=== PATIENT | female | born 1945 | race Caucasian/White ===

== ENCOUNTER 2017-05-01 10:36 | Emergency (ER) | payer OTHER ==
[2017-05-01 10:50] VITALS: PULSE 74
--- NOTE | 2017-05-01 11:10 | EDPHY ---
H & P Time Seen by Provider: 05/01/17 10:54 HPI/ROS: CHIEF COMPLAINT: Left flank pain after fall HISTORY OF PRESENT ILLNESS: 72-year-old female presents with left flank pain. 4 days ago, she was reaching up for something in the kitchen, lost her balance and fell backwards, directly onto the back of a chair. Her left flank struck the top of the seat back and then she slid to the ground. Immediate onset of left sided back pain. The pain increases with movement and alleviated by remaining still. She has been taking Aleve for pain relief, but not this morning. Her daughter arrived to pick her up for breakfast this morning, and found that she was having substantial pain, so brought her to the emergency department. No pain with breathing or coughing. No abdominal pain. She did not hit her head; no headache or neck pain. REVIEW OF SYSTEMS: Constitutional: No weakness Eyes: No visual changes ENT: No dental trauma Neck:No pain or injury Respiratory: No shortness of breath Cardiac: No chest pain Gastrointestinal: No abdominal pain, no vomiting Genitourinary: No hematuria Musculoskeletal: No joint pain Skin: No lacerations Neurological: No headache, no dizziness Past Medical/Surgical History: Parkinson's disease Social History: Lives alone in own apartment Smoking Status: Never smoked Physical Exam: General Appearance: Alert, pleasant Head: Atraumatic Eyes: No conjunctival erythema, PERRLA, EOMI ENT, Mouth: No hemotympanum, no oral trauma, no bony tenderness Neck: Nontender, range of motion without pain Respiratory: left sided chest wall tenderness and ecchymosis posteriorly, lungs clear bilaterally Cardiovascular: Regular rate and rhythm Abdomen: Abdomen is soft and nontender Skin: No lacerations, no abrasions Back: No midline T/L/S tenderness to palpation or percussion Extremities: Pelvis is stable and nontender; no extremity tenderness or deformity, range of motion without pain Neurological: A&Ox3, normal motor function, normal sensory exam, cranial nerves intact Psychiatric: Mood and affect normal Constitutional: Initial Vital Signs Temperature (C) 36.5 C 05/01/17 10:44 Heart Rate 74 05/01/17 10:44 Respiratory Rate 17 05/01/17 10:44 Blood Pressure 137/97 H 05/01/17 10:44 O2 Sat (%) 96 05/01/17 10:44 O2 Delivery Mode Room Air Allergies/Adverse Reactions: Penicillins Allergy (Severe, Verified 01/03/13 19:46) Home Medications: Medication Instructions Recorded Aricept 5 MG (*) 05/01/17 Oxybutynin 05/01/17 Sinemet 25/100 MG (*) 05/01/17 Medical Decision Making - Diagnostics Imaging Results: Imaging Impressions Ribs w/Chest X-Ray 05/01/17 11:06 Impression: Nondisplaced to minimally displaced subacute left 8th and 9th and probable acute left 11th rib fractures. X-ray independently reviewed by me reveals a lower left rib fracture, no pneumothorax. ED Course/Re-evaluation: This patient presents with a rib fracture after a mechanical fall 4 days ago. She is not hypoxic and Aleve seems to adequately control her pain. She would greatly like to go home and I feel that this is a safe plan for her. An incentive spirometer was given. Urinalysis reveals a contaminated specimen and she has no urinary symptoms. The urine culture was sent to rule out UTI. Differential Diagnosis: Differential diagnosis includes though it is not limited to open fracture, intracranial hemorrhage, pneumothorax, hemothorax, intra-abdominal hemorrhage. - Data Points Laboratory Results: 05/01/17 11:11 Urine Color YELLOW Urine Appearance CLEAR Urine pH 6.0 (5.0-7.5) Ur Specific Arnett <= 1.005 (1.002-1.030) Urine Protein NEGATIVE (NEGATIVE) Urine Ketones NEGATIVE (NEGATIVE) Urine Blood NEGATIVE (NEGATIVE) Urine Nitrate NEGATIVE (NEGATIVE) Urine Bilirubin NEGATIVE (NEGATIVE) Urine Urobilinogen 0.2 EU EU (0.2-1.0) Ur Leukocyte Esterase 1+ H (NEGATIVE) Urine RBC 0-1 /hpf /hpf (0-3) Urine WBC 10-15 /hpf H /hpf (0-3) Ur Epithelial Cells 2+ /lpf H /lpf (NONE-1+) Amorphous Sediment 1+ /hpf /hpf (NONE-1+) Urine Mucus TRACE /lpf /lpf (NONE-1+) Urine Glucose NEGATIVE (NEGATIVE) Medications Given: Discontinued Medications Ibuprofen (Motrin) 600 mg PO EDNOW ONE Stop: 05/01/17 12:09 Last Admin: 05/01/17 12:13 Dose: 600 mg Lidocaine (Lidoderm 5%) 1 ea TD EDNOW ONE Stop: 05/01/17 12:09 Last Admin: 05/01/17 12:14 Dose: 1 ea Departure - Departure Disposition: Home, Routine, Self-Care Clinical Impression: Left rib fracture Qualifiers: Encounter type: initial encounter Rib fracture type: single rib Fracture type: closed Qualified Code(s): S22.32XA - Fracture of one rib, left side, initial encounter for closed fracture Condition: Good Instructions: Rib Fracture (ED) Additional Instructions: Take Aleve 1 tablet every 12 hours as needed for pain. You can also take Tylenol 650 mg every 4 hours as needed for pain. Use a lidocaine patch over the painful area. Follow the packaging instructions. Use the incentive spirometer every 1-2 hours while awake. Return for worsening pain, shortness of breath, cough, fever, any concerns. Referrals: YOLANDA TEIXEIRA [Primary Care Provider] - 3-4 days, if not improved
[2017-05-01 11:22] LABS: COLOR YELLOW; LEUKOCYTE ESTERASE,URINE 1+ (NEGATIVE); NITRITE,URINE NEGATIVE (NEGATIVE)
[2017-05-01] MEDS ORDERED: LIDOCAINE 5% 1 EA PATCH TD ONE (12:08)
[2017-05-01] MEDS ORDERED: IBUPROFEN 600 MG TAB PO ONE (12:08)
[2017-05-01 12:41] VITALS: BP 148/94; RESP 18; TEMP 98.2; O2SAT 97
[2017-05-01 12:59] LABS: AMORPHOUS 1+ /hpf (NONE-1+); MUCUS TRACE /lpf (NONE-1+); RBC,URINE 0-1 /hpf (0-3)
[2017-05-01] MEDS ORDERED: PATCH REMOVAL 1 EA PATCH TD SCH (21:00)
== END 2017-05-01 12:38 | disposition home or self-care (01) ==
LOC: CED 10:36
DX: S22.32XA Fracture of one rib, left side, initial encounter for closed fracture (principal); W01.190A Fall on same level from slipping, tripping and stumbling with subsequent striking against furniture, initial encounter; Y92.000 Kitchen of unspecified non-institutional (private) residence as the place of occurrence of the external cause
CPT/HCPCS: 71101-PO; 81003-PO; 81015-PO

== ENCOUNTER 2018-01-30 09:05 | Inpatient (IN) | payer OTHER ==
[2018-01-30] MEDS ORDERED: fentaNYL 100 MCG/2 ML INJ IVP ONE ×3 (09:24→10:10)
--- NOTE | 2018-01-30 10:12 | EDPHY ---
H & P [facility] - Personal History Current Tetanus/Diphtheria Vaccine: Yes Current Tetanus Diphtheria and Acellular Pertussis (TDAP): Yes - Medical/Surgical History Hx Asthma: No Hx Chronic Respiratory Disease: No Hx Diabetes: No Hx Cardiac Disease: No Hx Renal Disease: No Hx Cirrhosis: No Hx Alcoholism: No Hx HIV/AIDS: No Hx Splenectomy or Spleen Trauma: No Other PMH: hysterectomy. parkinsonism - Social History Smoking Status: Never smoked Time Seen by Provider: 01/30/18 09:55 HPI/ROS: CHIEF COMPLAINT: Left shoulder pain post mechanical fall HISTORY OF PRESENT ILLNESS: 72-year-old female history of Parkinson's disease, ambulates with a walker held in her bilateral hands, lives at an independent prison facility, arrives via ambulance complaining of acute left shoulder pain after she was walking with her walker, her walker caught on something and she fell onto her outstretched left arm. She is complaining of reproducible left upper extremity pain and shoulder deformity. Denies: Head injury, midline C-spine pain, alcohol or drug use, peripheral musculoskeletal complaints beyond her left shoulder complaint, chest pain or trauma, dyspnea. REVIEW OF SYSTEMS: A ten point review of systems was performed and is negative with the exception of the items mentioned in the HPI PAST MEDICAL/SURGICAL HISTORY: no anticoagulant use, Parkinson's disease SOCIAL HISTORY: denies alcohol use at time of incident PHYSICAL EXAM 1) GENERAL: Well-developed, well-nourished, alert and oriented. Appears to be in no acute distress. Answering questions appropriately. 2) HEAD: Normocephalic, atraumatic 3) HEENT: Pupils equal, round, reactive to light bilaterally. Negative Horners. Nasopharynx, oropharynx, clear. No deformity or angulation of nose. No septal hematoma. No rhinorrhea. No oral trauma. Ears bilaterally with normal tympanic membranes. No hemotympanum. No fluid or blood in the external auditory canal. No raccoon eyes. No Coker sign. Teeth are normally aligned with no gross malocclusion, TMJ bilaterally nontender, facial bones nontender including the zygomatic arch, maxilla mandible. 4) NECK: No cervical collar is on. Posterior cervical spine is nontender, no stepoff, no effusion. Full range of motion which does not elicit any midline cervical spine pain, no posterior midline tenderness, no step-off. Cervical collar is on.Cervical collar is removed while holding inline traction and patient is unable to completely differentiate between true midline pain versus just lateral of midline pain.Cervical collar is replaced at that point.and patient has no complaints of midline cervical pain, no effusion noted, trachea midline, no JVD. 5) LUNGS: Clear to auscultation bilaterally, no wheezes, no rhonchi, no retractions. No obvious signs of trauma. No chest wall pain. No flaring, no grunting. Moving symmetrically. No crepitus. 6) HEART: [Regular rate and rhythm, 7) ABDOMEN: No guarding, no rebound, no focal tenderness, no peritoneal signs, no signs of trauma, no ecchymosis 8) MUSCULOSKELETAL: Left upper extremity: Lateral step-off anterior fullness consistent with dislocation. Intact skin. No tenting. Bilateral deltoid sensation equal. Distal radial ulnar median nerve function intact. Soft compartments Palpation of the forearm elicits pain, unclear of pain directly from the forearm or referred pain from the shoulder. Otherwise, Moving all extremities, no focal areas of tenderness, no obvious trauma. 9) BACK: No midline vertebral tenderness, no fluctuance, no step-off, no obvious trauma, no visual or palpable abnormality. 10) SKIN: No laceration. No abrasion DIFFERENTIAL DIAGNOSIS: In no particular order including but not limited to fracture, dislocation, compartment syndrome (Lay,Rj Lydia) Constitutional: Initial Vital Signs Temperature (C) 36.5 C 01/30/18 09:08 Heart Rate 69 01/30/18 09:08 Respiratory Rate 18 01/30/18 09:08 Blood Pressure 147/100 H 01/30/18 09:08 O2 Sat (%) 94 01/30/18 09:08 O2 Delivery Mode Room Air Allergies/Adverse Reactions: Penicillins Allergy (Severe, Verified 01/03/13 19:46) Home Medications: Medication Instructions Recorded Carbidopa/Levodopa 25/100Mg 1 tab PO TID@07,15,05/01/17 [Sinemet 25/100 MG (*)] Carbidopa/Levodopa 25/100Mg 2 tab PO DAILY@01/30/18 [Sinemet 25/100 MG (*)] Darifenacin Hydrobromide [Enablex] 7.5 mg PO DAILY 01/30/18 Melatonin [Melatonin 3 MG (*)] 3 - 6 mg PO HS 01/30/18 Medical Decision Making - Diagnostics Imaging Results: Imaging Impressions Forearm X-Ray 01/30/18 09:17 Impression: Negative. No acute fracture. Shoulder X-Ray 01/30/18 09:17 Impression: 1. Anterior dislocation left humeral head at the glenoid fossa. 2. Small chip fracture suspected adjacent to the glenoid portion of the scapula. Humerus X-Ray 01/30/18 09:18 Impression: 1. Anterior dislocation left humeral head at the glenoid fossa. 2. Small chip fracture suspected adjacent to the glenoid portion of the scapula. Shoulder X-Ray 01/30/18 10:30 Impression: 1. No fracture or dislocation. 2. 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 Procedures: Procedure: Dislocation reduction. . The dislocation of the left shoulder was reduced using traction and counter traction technique without complications. Post reduction the patient's neurovascular exam is normal. Post reduction x-ray demonstrates reduction of the joint to the anatomic position. The procedure was performed by myself. (Rj Chun) ED Course/Re-evaluation: 10:17 a.m.: Re-evaluation with serial exams. She does have clinical and radiographic findings consistent with anterior shoulder dislocation with no evidence of definitive fracture at this time. Plan will be reduction of the shoulder. Plan will also be hospital admission to the hospitalist service as she will be placed into a sling and she will be unable to ambulate with her walker and has a baseline of gait instability. I saw this patient independently based on established practice protocols. Care of patient under supervision of secondary supervising physician Dr Al Andrade with whom I discussed case. 10:54 a.m.: Post reduction x-ray shows normal anatomic alignment. She is in a sling. I do not think that discharge home is appropriate for this patient as she is unable to ambulate at this time as am concerned she may sustain secondary injury. Plan will be admission to hospitalist service with orthopedic consultation. Case management has been made aware 11:01 a.m.: Phone consultation with hospitalist, admit to Dr. Gomez, case management coordinating with respite care (Rj Chun) I did not see this patient while she was in the emergency department. However her care was discussed with the PA while the patient was in the department. I agree with treatment plan and management (Al Andrade) - Data Points Laboratory Results: Laboratory Results 01/30/18 09:07 01/30/18 09:07 Sodium 138 mEq/L mEq/L (135-145) Potassium 4.2 mEq/L mEq/L (3.3-5.0) Chloride 108 mEq/L mEq/L (97-110) Carbon Dioxide 22 mEq/l mEq/l (22-31) Anion Gap 8 mEq/L mEq/L (8-16) BUN 14 mg/dL mg/dL (7-23) Creatinine 0.9 mg/dL mg/dL (0.6-1.0) Estimated GFR > 60 Glucose 110 mg/dL H mg/dL (70-100) Calcium 9.7 mg/dL mg/dL (8.5-10.4) Medications Given: Discontinued Medications Fentanyl (Sublimaze) 50 mcg IVP EDNOW ONE Stop: 01/30/18 09:25 Last Admin: 01/30/18 09:26 Dose: 50 mcg Fentanyl (Sublimaze) 50 mcg IVP EDNOW ONE Stop: 01/30/18 10:08 Last Admin: 01/30/18 10:50 Dose: Not Given Fentanyl (Sublimaze) 75 mcg IVP EDNOW ONE Stop: 01/30/18 10:11 Last Admin: 01/30/18 10:15 Dose: 75 mcg Departure - Departure Disposition: [facility] Acute Clinical Impression: History of Parkinson's disease Shoulder dislocation Qualifiers: Encounter type: initial encounter Laterality: left Qualified Code(s): S43.005A - Unspecified dislocation of left shoulder joint, initial encounter Condition: Fair
[2018-01-30 11:11] LABS: PLATELET COUNT 231 10^3/uL (150-400)
[2018-01-30] MEDS ORDERED: ONDANSETRON 4 MG/2 ML VIAL IVP PRN (11:41)
[2018-01-30] MEDS ORDERED: ONDANSETRON DISINTEGRATING 4 MG TAB PO PRN (11:41)
[2018-01-30] MEDS ORDERED: ACETAMINOPHEN 325 MG TAB PO PRN (11:41)
--- NOTE | 2018-01-30 12:16 | ASMTCMCOM ---
CM Note CM Note Notes: Patient presents to the ER from her apartment at [facility] ([facility] in [place] after falling this morning. See ER report for details. Patient is active with [facility] and aI have spoken with her SW Miri about plans for patient admission and potential SNF/respite care upon discharge. I have also spoken with patient's daughter Asiya Asiya explains that patient has recently started with [facility] and they are doing everything they can to keep patient in her home. Asiya believes that patient does pretty well but is concerned that she is "stubborn" and does not always use her walker, "which is how she fell today". Miri states that she is looking into options for patient to enter a "respite" bed upon D/C to allow for some therapy while patient is recovering from her fall. She informs this CM that [facility] would be the preferred location based on patient's residence and I have LM with Norma Woodard . CM can reach FRANKI Chery at [facility] today until 4:30 , or call the main number after hours and the weekend @ I have met with patient and discussed plan for admission and potential SNF/respite stay after and she is "open" to this, "if needed". CM to follow with discharge planning. Date Signed: 01/30/2018 12:15 PM Electronically Signed By:Twila Abraham RN
[2018-01-30] MEDS: oxyCODONE IR 5 MG TAB PO PRN ×2 (14:03→18:07)
--- NOTE | 2018-01-30 14:30 | GHP ---
[f rep st] HISTORY AND PHYSICAL DATE OF ADMISSION: 01/30/2018 CHIEF COMPLAINT: Left shoulder pain. HISTORY OF PRESENT ILLNESS: The patient is a 72-year-old female with a history of Parkinson disease. She ambulates at baseline with a walker and lives independently in a residential facility. Today , she states that she was using her walker when she caught on something and fell, outstretched her le ft arm and fell on it. She complains of left upper extremity pain and shoulder discomfort. She stat es that she was feeling in her normal health until this fall. She denies any loss of consciousness. She denies any shortness of breath, chest pain, or dyspnea. She denies any other fevers, night swea ts, chills, other complaints. Her only complaint is her left shoulder pain. REVIEW OF SYSTEMS: A comprehensive 10-point review of systems is negative, other than noted in the H PI. PAST MEDICAL HISTORY: Parkinson disease. PAST SURGICAL HISTORY: Hysterectomy. SOCIAL HISTORY: The patient lives independently. She denies any alcohol or tobacco use. ALLERGIES: Penicillin. PHYSICAL EXAM: GENERAL: The patient is alert, oriented, no acute distress. Mild discomfort. VITAL SIGNS: Afebrile at 36.5, pulse is 94, respiratory rate is 18, blood pressure is 156/101. She is sa turating 92% on room air. HEENT: Normocephalic, atraumatic. Mucosal membranes are moist. Pupils e qual, round, reactive to light. RESPIRATORY: Lungs are clear to auscultation bilaterally. No rhonc hi or wheezes noted. CARDIOVASCULAR: Regular rate and rhythm. No gallop or murmur appreciated. GA STROINTESTINAL/ABDOMEN: Bowel sounds are positive. Soft and nontender. There is no guarding or rig idity noted. EXTREMITIES: Within normal limits other than the pre-mentioned left upper extremity wi th increased pain and limited range of motion. Other extremities are intact without clubbing or cyan osis appreciated. SKIN: Without rashes or lesions. No abrasions identified. NEUROLOGICAL: The pa tient is focally intact. HOME MEDICATIONS: Sinemet, melatonin, and Enablex. RADIOLOGICAL STUDIES: 1. Forearm x-ray is negative. 2. Shoulder x-ray shows anterior dislocation of the left humeral head with a possible small chip fra cture. 3. Shoulder x-ray: Rotator cuff impingement. PROCEDURE: Dislocation reduction of the left shoulder. LABORATORY EVALUATION: Metabolic panel and CBC are essentially benign. ASSESSMENT AND PLAN: A 72-year-old female, suffering mechanical fall, admitted for: 1. Left shoulder dislocation during this hospitalization. Her shoulder has been relocated. She ramirez s have rotator cuff impingement with possible small chip fracture of her humerus. She is in a sling and will require outpatient followup with Orthopedics, but no identifiable needs at this time. 2. Pain. I have ordered a small dose of oxycodone IR for the patient as she is elderly. We will co ntinue this as well as Tylenol for pain management. 3. Hypertension. This is in the setting of acute stress and anxiety as well as pain. We will monit or this closely. She states she does not have a history of hypertension, and we will not start her o n any antihypertensive medications at this time. 4. History of Parkinson disease. We will continue the patient's previously prescribed Sinemet as or dered. 5. Weakness. Physical therapy, as well as occupational therapy will be initiated during this hospit al's admission. 6. Disposition. The patient will be admitted to inpatient status as she requires significant care w ith her activities of daily living and pain management. The patient may require prison faci lity at the time of disposition. I reviewed this with Case Management. I have reviewed the patient' s care with Sameer Chun of the emergency room. 7. Deep venous thrombosis prophylaxis will include Lovenox. Further action will be taken as needed during the patient's hospitalization. /[id number]/MODL
[2018-01-30] MEDS: CARBIDOPA/LEVODOPA 25 MG/100 MG TAB PO SCH ×2 (16:23→18:07)
[2018-01-30] MEDS ORDERED: MELATONIN 3 MG TAB PO SCH (21:00)
[2018-01-31] MEDS: oxyCODONE IR 5 MG TAB PO PRN (01:29)
[2018-01-31] MEDS: CARBIDOPA/LEVODOPA 25 MG/100 MG TAB PO SCH ×2 (06:42→14:43)
[2018-01-31] MEDS ORDERED: ENOXAPARIN 30 MG/0.3 ML SYR SC SCH (09:00)
[2018-01-31] MEDS ORDERED: DARIFENACIN HYDROBROMIDE 7.5 MG PO SCH (09:00)
--- NOTE | 2018-01-31 09:52 | ASMTCMCOM ---
CM Note CM Note Notes: Spoke with Norma Woodard about plan for respite at [facility] on DC. Per Norma, [facility] will pay for a nursing respite stay. If pt needs therapies. she will get them at [facility]'s day program. Referral faxed to . NADJA to follow. Date Signed: 01/31/2018 09:52 AM Electronically Signed By:Valentina Madrid LCSW
--- NOTE | 2018-01-31 10:48 | PDIAF ---
- Diagnosis Diagnosis: shoulder disloacation Code Status: Full Code - Medication Management Discharge Medications: Medications to Continue on Transfer Carbidopa/Levodopa 25/100Mg [Sinemet 25/100 MG (*)] 1 tab PO TID@,, [Last Taken 01/30/18 07:00] Carbidopa/Levodopa 25/100Mg [Sinemet 25/100 MG (*)] 2 tab PO DAILY@11 01/30/18 [ Last Taken 01/29/18] Darifenacin Hydrobromide [Enablex] 7.5 mg PO DAILY 01/30/18 [Last Taken 01/30/18 ] Melatonin [Melatonin 3 MG (*)] 3 - 6 mg PO HS 01/30/18 [Last Taken 01/29/18] oxyCODONE IR [Oxycodone Ir (*)] 2.5 - 5 mg PO Q4HRS PRN tab 01/31/18 [Last Taken Unknown] Discharge Medications: Refer to the Discharge Home Medication list for PRN reason. - Orders Services needed: Physical Therapy, Occupational Therapy - Follow Up Care Current Providers and Referrals: Patient,NotPresent [Unknown] - As per Instructions
--- NOTE | 2018-01-31 10:55 | PDIAF ---
- Diagnosis Diagnosis: shoulder disloacation Code Status: Full Code - Medication Management Discharge Medications: Medications to Continue on Transfer Carbidopa/Levodopa 25/100Mg [Sinemet 25/100 MG (*)] 1 tab PO TID@,, [Last Taken 01/30/18 07:00] Carbidopa/Levodopa 25/100Mg [Sinemet 25/100 MG (*)] 2 tab PO DAILY@11 01/30/18 [ Last Taken 01/29/18] Darifenacin Hydrobromide [Enablex] 7.5 mg PO DAILY 01/30/18 [Last Taken 01/30/18 ] Melatonin [Melatonin 3 MG (*)] 3 - 6 mg PO HS 01/30/18 [Last Taken 01/29/18] Discharge Medications: Refer to the Discharge Home Medication list for PRN reason. - Orders Services needed: Physical Therapy, Occupational Therapy Additional Instructions: Left shoulder in sling for 3 days then start PT with gentle range of motion and advance mobility as tolerated - Follow Up Care Current Providers and Referrals: Patient,NotPresent [Unknown] - As per Instructions
[2018-01-31] MEDS ORDERED: CARBIDOPA/LEVODOPA 25 MG/100 MG TAB PO SCH (11:00)
--- NOTE | 2018-01-31 11:18 | ASMTDCNOTE ---
Case Management Discharge Discharge Order Complete? Answers: Yes Transportation Arranged Answers: Other Notes: [facility] will Pick (Date 01/31/2018 03:00 AM & Time) Faxed Final Orders Answers: Yes Family Notified Answers: Yes Date Signed: 01/31/2018 11:18 AM Electronically Signed By:Valentina Madrid LCSW
--- NOTE | 2018-01-31 11:28 | ASMTLACE ---
LACE Length of stay for Answers: 1 day current admission Acuity / Level of Answers: Yes Care: Did the patient have an inpatient admission? Comorbidities - select Answers: Cerebrovascular disease all that apply (CVA, TIA, aneurysms, vasc ular dementia) # of Emergency department Answers: 1-2 visits in the last 6 months Score: 6 Date Signed: 01/31/2018 11:27 AM Electronically Signed By:Valentina Madrid LCSW
--- NOTE | 2018-01-31 12:29 | GDS ---
[f rep st] DISCHARGE SUMMARY DISCHARGE DIAGNOSES: 1. Status post fall with left shoulder dislocation. 2. Parkinson's. 3. Lewy body dementia. HISTORY: This is a 72-year-old female with a history of Parkinson's and dementia, who fell on an out stretched hand and developed a shoulder dislocation. HOSPITAL COURSE: The patient was admitted overnight. She is doing well with pain control. Patient was seen in the emergency department and the shoulder was reduced. Repeat shoulder x-ray shows no fr acture or dislocation. She does remain in a sling today. She did well overnight, and she is going t o be discharged to [facility] for a couple week respite from her day program [facility]. DISPOSITION: [facility]. DISCHARGE MEDICATIONS: She is to continue her home medicines. FOLLOWUP INSTRUCTIONS: She is instructed to stay in a sling for 3 or 4 days, and then to start gentl e physical therapy with passive range of motion and advancing as tolerated afterwards. She can also follow up with Orthopedic surgery within a week or 2. Greater than 30 minutes was spent in discharge. /[id number]/MODL
[2018-01-31 13:58] VITALS: BP 96/64
[2018-02-01] MEDS ORDERED: ENOXAPARIN 40 MG/0.4 ML SYR SC SCH (09:00)
--- NOTE | 2018-02-01 11:31 | ASDISCHSUM ---
Discharge Information Plan Status:SNF Medically Cleared to Leave: Discharge Date:01/31/2018 03:12 PM D/C Disposition:Care Home Facility ADT D/C Disposition:Care Home Facility Projected Discharge Date:02/01/2018 11:00 AM Transportation at D/C: Discharge Delay Reason: Follow-Up Date:02/01/2018 11:00 AM Discharge Slot: Final Diagnosis: Placement Information Referral Type:*Penitentiary/SNF Referral ID:[id number] Provider Name:[facility] Address 1:[address] Address 2: City:[place] Selection Factors: State:[place] Patient Contact Information Contact Name:CHINMAY Relationship:Daughter Address:[address] [place] [address] City:[place] Alternate Phone: State/Zip Code:[place] [address] Email: Financial Information Financial Class:HMO and PPO Plans Primary Plan Desc:[facility] Primary Plan Number:[id number] Secondary Plan Desc: Secondary Plan Number: Assessment Information LACE LACE Length of stay for Answers: 1 day current admission Acuity / Level of Answers: Yes Care: Did the patient have an inpatient admission? Comorbidities - select Answers: Cerebrovascular disease all that apply (CVA, TIA, aneurysms, vasc ular dementia) # of Emergency department Answers: 1-2 visits in the last 6 months Score: 6 Date Signed: 01/31/2018 11:27 AM Electronically Signed By:Valentina Madrid LCSW [facility] CM Progress Note CM Note CM Note Notes: Patient presents to the ER from her apartment at [facility] ([facility] in [place] after falling this morning. See ER report for details. Patient is active with [facility] and aI have spoken with her SWMiri about plans for patient admission and potential SNF/respite care upon discharge. I have also spoken with patient's daughter Asiya Asiya explains that patient has recently started with [facility] and they are doing everything they can to keep patient in her home. Asiya believes that patient does pretty well but is concerned that she is "stubborn" and does not always use her walker, "which is how she fell today". Miri states that she is looking into options for patient to enter a "respite" bed upon D/C to allow for some therapy while patient is recovering from her fall. She informs this CM that [facility] would be the preferred location based on patient's residence and I have LM with Norma Woodard . CM can reach FRANKI Chery at [facility] today until 4:30 , or call the main number after hours and the weekend @ I have met with patient and discussed plan for admission and potential SNF/respite stay after and she is "open" to this, "if needed". CM to follow with discharge planning. Date Signed: 01/30/2018 12:15 PM Electronically Signed By:Twila Abraham RN [facility] CM Progress Note CM Note CM Note Notes: Spoke with Norma Woodard about plan for respite at [facility] on [place]. Per Norma, [facility] will pay for a nursing respite stay. If pt needs therapies. she will get them at [facility]'s day program. Referral faxed to Malik [facility] to follow. Date Signed: 01/31/2018 09:52 AM Electronically Signed By:Valentina Madrid LCSW Case Management Discharge Plan Note Case Management Discharge Discharge Order Complete? Answers: Yes Transportation Arranged Answers: Other Notes: [facility] will Pick (Date 01/31/2018 03:00 AM & Time) Faxed Final Orders Answers: Yes Family Notified Answers: Yes Date Signed: 01/31/2018 11:18 AM Electronically Signed By:Valentina Madrid LCSW Intervention Information Intervention Type:*Incorrect Registration Date of Service:01/30/2018 01:52 PM Patient Type:Observation Staff Member:RANDALL Lanier Courtney Hours: Discipline: Severity: Comment:
== END 2018-01-31 15:12 | DRG 563 ==
LOC: EDUNIT# → OBSVTOIN 11:42 → F3N 12:43
PROVIDERS: ADMIT Internal Medicine; ATTEND Internal Medicine
DX: S43.012A Anterior subluxation of left humerus, initial encounter (principal); G31.83 Neurocognitive disorder with Lewy bodies; F02.80 Dementia in other diseases classified elsewhere, unspecified severity, without behavioral disturbance, psychotic disturbance, mood disturbance, and anxiety; M19.012 Primary osteoarthritis, left shoulder; M75.42 Impingement syndrome of left shoulder; W01.0XXA Fall on same level from slipping, tripping and stumbling without subsequent striking against object, initial encounter; Y93.01 Activity, walking, marching and hiking; Y92.198 Other place in other specified residential institution as the place of occurrence of the external cause; R03.0 Elevated blood-pressure reading, without diagnosis of hypertension; R53.1 Weakness; Z88.0 Allergy status to penicillin
CPT/HCPCS: 96374; 97161-GP; 97165-GO; G8978-GP-CK; G8979-GP-CI; G8987-GO-CK; G8988-GO-CJ; J1650; J3010

== ENCOUNTER 2018-11-10 16:27 | Emergency (ER) | payer OTHER ==
--- NOTE | 2018-11-10 17:02 | EDPHY ---
H & P Stated Complaint: PC sent for labs, dementia, confusion, ams from baseline Time Seen by Provider: 11/10/18 17:02 HPI/ROS: HPI CHIEF COMPLAINT: Confusion. HISTORY OF PRESENT ILLNESS: Patient is a 73-year-old female she arrives to the emergency room by private vehicle with her daughter from her day program which the day staff noticed at the day program that she was having increasing confusion today. She has dementia at baseline, however the staff there thought that she was more confused than normal. She arrives to the emergency room in no acute distress, denies any complaints. She did have a recent fall earlier in the week and has some bruising to her right side her face. The bruising his old. Daughter at bedside reports to me that she is close to her baseline appears tired however brought her to the emergency room is staff at her day facility thought that she was more confused. No focal weakness. Past Medical History: Significant medical history for hypertension, Parkinson' s disease, dementia Past Surgical History: No recent surgical history Social History: Lives locally, in assisted living facility. Family History: Noncontributory ROS REVIEW OF SYSTEMS: 10 Systems were reviewed and negative with the exception of the elements mentioned in the history of present illness. Exam Constitutional elderly, frail, nontoxic triage nursing summary reviewed, vital signs reviewed, awake/alert. Eyes normal conjunctivae and sclera, EOMI, PERRLA. HENT normal inspection, atraumatic, moist mucus membranes, no epistaxis, neck supple/ no meningismus, no raccoon eyes. Respiratory clear to auscultation bilaterally, normal breath sounds, no respiratory distress, no wheezing. Cardiovascular rate normal, regular rhythm, no murmur, no edema, distal pulses normal. Gastrointestinal soft, non-tender, no rebound, no guarding, normal bowel sounds, no distension, no pulsatile mass. Genitourinary no CVA tenderness. Musculoskeletal no midline vertebral tenderness, full range of motion, no calf swelling, no tenderness of extremities, no meningismus, good pulses, neurovascularly intact. Skin face mild bruising to the right side of face, yellow/brown ecchymosis, otherwise atraumatic pink, warm, & dry, no rash, skin atraumatic. Neurologic awake, alert and oriented x 3, AAOx3, moves all 4 extremities equally, motor intact, sensory intact, CN II-XII intact, normal cerebellar, normal vision, normal speech. Psychiatric normal mood/affect. Heme/Lymph/Immune no lymphadenopathy. Differential Diagnosis: Includes but is not limited to in a particular order underlying dementia, delirium, infection, UTI, pneumonia, electrolyte disturbance, dehydration Medical Decision Making: Plan for this patient IV establishment IV fluid bolus , check basic electrolytes, troponin, EKG, CT scan head without contrast given patient fell. Re-evaluation: Urinalysis reviewed shows urinary tract infection. Culture will be sent. [address] scan head without contrast negative for acute traumatic injury called to me by Dr. Vera. EKG interpretation by me on record in [employer] system. Impression time of EKG 1756, sinus rhythm rate of 65, no signs of acute ischemia. Troponin 0.00 1929 patient is requesting discharge home. Patient feels much better. She received IV fluids and IV Rocephin. Urine cultures been sent. Plan for treatment for UTI. Daughter updated at bedside at 7:29 p.m. She would like her mom to go home. We discussed return precautions return emergency room if worsening fever, confusion , vomiting, not doing well. Source: Patient - Personal History Current Tetanus/Diphtheria Vaccine: Yes Current Tetanus Diphtheria and Acellular Pertussis (TDAP): Yes - Medical/Surgical History Hx Asthma: No Hx Chronic Respiratory Disease: No Hx Diabetes: No Hx Cardiac Disease: No Hx Renal Disease: No Hx Cirrhosis: No Hx Alcoholism: No Hx HIV/AIDS: No Hx Splenectomy or Spleen Trauma: No Other PMH: hysterectomy. parkinsonism, Lewey Body dementia - Social History Smoking Status: Never smoked Constitutional: Initial Vital Signs Temperature (C) 36.6 C 11/10/18 16:29 Heart Rate 76 11/10/18 16:29 Respiratory Rate 16 11/10/18 16:29 Blood Pressure 140/83 H 11/10/18 16:29 O2 Sat (%) 97 11/10/18 16:29 O2 Delivery Mode Room Air Allergies/Adverse Reactions: Penicillins Allergy (Severe, Verified 02/13/18 11:10) Home Medications: Medication Instructions Recorded Darifenacin Hydrobromide [Enablex] 7.5 mg PO DAILY 01/30/18 Acetaminophen [Tylenol 325mg (*)] 325 - 650 mg PO Q4H PRN 02/13/18 Carbidopa/Levodopa 25/100Mg 1 tab PO BID@08,16 02/13/18 [Sinemet 25/100 MG (*)] Carbidopa/Levodopa 2 each PO DAILY@12 02/13/18 [Carbidopa-Levodopa 25-100 Tab] Ibuprofen [Motrin (*)] 200 mg PO Q4H PRN 02/13/18 Ibuprofen [Motrin (*)] 400 mg PO Q6H PRN 02/13/18 LORazepam [Ativan (*)] 0.5 mg PO HS PRN 02/13/18 Melatonin 5 mg SL HS 02/13/18 Sertraline HCl [Zoloft 25mg (*)] 25 mg PO HS 02/13/18 Cephalexin [Keflex] 500 mg PO Q6H #28 cap 11/10/18 Medical Decision Making - Diagnostics Imaging Results: Imaging Impressions Head CT 11/10/18 17:12 Impression: 1. Elderly brain with atrophy and probable white matter small vessel disease. 2. Negative for intracranial hemorrhage. 3. Partial opacification of the sphenoid sinuses may be related to blood from a facial trauma. 4. See above report for additional findings. Results called and discussed with Cirilo Cespedes MD on 11/10/2018 at 18:00. - Data Points Laboratory Results: Laboratory Results 11/10/18 16:50 11/10/18 16:50 11/10/18 11/10/18 11/10/18 17:28 16:50 16:50 WBC RBC Hgb Hct MCV MCH MCHC RDW Plt Count MPV Neut % (Auto) Lymph % (Auto) Bibb % (Auto) Eos % (Auto) Baso % (Auto) Nucleat RBC Rel Count Absolute Neuts (auto) Absolute Lymphs (auto) Absolute Monos (auto) Absolute Eos (auto) Absolute Basos (auto) Absolute Nucleated RBC Immature Gran % Immature Gran # PT 12.5 SEC SEC (12.0-15.0) INR 0.97 (0.83-1.16) APTT 28.4 SEC SEC (23.0-38.0) Sodium Potassium Chloride Carbon Dioxide Anion Gap BUN Creatinine Estimated GFR Glucose Calcium Total Bilirubin 0.4 mg/dL mg/dL (0.1-1.4) Conjugated Bilirubin 0.2 mg/dL mg/dL (0.0-0.5) Unconjugated Bilirubin 0.2 mg/dL mg/dL (0.0-1.1) AST 19 IU/L IU/L (14-46) ALT 21 IU/L IU/L (9-52) Alkaline Phosphatase 88 IU/L IU/L (38-126) POC Troponin I 0.00 ng/mL ng/mL (0.00-0.08) Total Protein 7.0 g/dL g/dL (6.3-8.2) Albumin 4.7 g/dL g/dL (3.5-5.0) Urine Color Urine Appearance Urine pH Ur Specific [place] Urine Protein Urine Ketones Urine Blood Urine Nitrate Urine Bilirubin Urine Urobilinogen Ur Leukocyte Esterase Urine RBC Urine WBC Ur Epithelial Cells Calcium Oxalate Crystal Urine Bacteria Urine Mucus Urine Glucose 11/10/18 11/10/18 11/10/18 16:50 16:50 16:50 WBC 7.36 10^3/uL 10^3/uL (3.80-9.50) RBC 4.65 10^6/uL 10^6/uL (4.18-5.33) Hgb 14.7 g/dL g/dL (12.6-16.3) Hct 43.6 % % (38.0-47.0) MCV 93.8 fL fL (81.5-99.8) MCH 31.6 pg pg (27.9-34.1) MCHC 33.7 g/dL g/dL (32.4-36.7) RDW 11.9 % % (11.5-15.2) Plt Count 273 10^3/uL 10^3/uL (150-400) MPV 8.2 fL L fL (8.7-11.7) Neut % (Auto) 57.7 % % (39.3-74.2) Lymph % (Auto) 31.1 % % (15.0-45.0) Bibb % (Auto) 7.3 % % (4.5-13.0) Eos % (Auto) 2.9 % % (0.6-7.6) Baso % (Auto) 0.7 % % (0.3-1.7) Nucleat RBC Rel Count 0.0 % % (0.0-0.2) Absolute Neuts (auto) 4.25 10^3/uL 10^3/uL (1.70-6.50) Absolute Lymphs (auto) 2.29 10^3/uL 10^3/uL (1.00-3.00) Absolute Monos (auto) 0.54 10^3/uL 10^3/uL (0.30-0.80) Absolute Eos (auto) 0.21 10^3/uL 10^3/uL (0.03-0.40) Absolute Basos (auto) 0.05 10^3/uL 10^3/uL (0.02-0.10) Absolute Nucleated RBC 0.00 10^3/uL 10^3/uL (0-0.01) Immature Gran % 0.3 % % (0.0-1.1) Immature Gran # 0.02 10^3/uL 10^3/uL (0.00-0.10) PT INR APTT Sodium 138 mEq/L mEq/L (135-145) Potassium 4.1 mEq/L mEq/L (3.5-5.2) Chloride 105 mEq/L mEq/L (97-110) Carbon Dioxide 24 mEq/l mEq/l (22-31) Anion Gap 9 mEq/L mEq/L (6-14) BUN 19 mg/dL mg/dL (7-23) Creatinine 0.8 mg/dL mg/dL (0.6-1.0) Estimated GFR > 60 Glucose 113 mg/dL H mg/dL (70-100) Calcium 9.7 mg/dL mg/dL (8.5-10.4) Total Bilirubin Conjugated Bilirubin Unconjugated Bilirubin AST ALT Alkaline Phosphatase POC Troponin I Total Protein Albumin Urine Color DEMETRI Urine Appearance HAZY Urine pH 5.0 (5.0-7.5) Ur Specific [place] 1.027 (1.002-1.030) Urine Protein NEGATIVE (NEGATIVE) Urine Ketones TRACE H (NEGATIVE) Urine Blood NEGATIVE (NEGATIVE) Urine Nitrate NEGATIVE (NEGATIVE) Urine Bilirubin NEGATIVE (NEGATIVE) Urine Urobilinogen 2.0 EU H EU (0.2-1.0) Ur Leukocyte Esterase TRACE H (NEGATIVE) Urine RBC 1-3 /hpf /hpf (0-3) Urine WBC 15-25 /hpf H /hpf (0-3) Ur Epithelial Cells TRACE /lpf /lpf (NONE-1+) Calcium Oxalate Crystal PRESENT /hpf /hpf (NONE-1+) Urine Bacteria TRACE /hpf H /hpf (NONE SEEN) Urine Mucus 1+ /lpf /lpf (NONE-1+) Urine Glucose NEGATIVE (NEGATIVE) Medications Given: Discontinued Medications Sodium Chloride (Ns) 500 mls @ 0 mls/hr IV ONCE ONE PRN Reason: Wide Open Stop: 11/10/18 17:14 Last Admin: 11/10/18 17:24 Dose: 500 mls Ceftriaxone Sodium/Dextrose (Rocephin 1 Gm (Premix)) 50 mls @ 100 mls/hr IV EDNOW ONE PRN Reason: Protocol Stop: 11/10/18 17:45 Last Admin: 11/10/18 17:24 Dose: 50 mls Sodium Chloride (Ns) 500 mls @ 0 mls/hr IV ONCE ONE PRN Reason: Wide Open Stop: 11/10/18 18:21 Last Admin: 11/10/18 18:27 Dose: 500 mls Point of Care Test Results: Chemistry 11/10/18 17:28 POC Troponin I 0.00 ng/mL ng/mL (0.00-0.08) Departure - Departure Disposition: Home, Routine, Self-Care Clinical Impression: UTI (urinary tract infection) Qualifiers: Urinary tract infection type: acute cystitis Hematuria presence: with hematuria Qualified Code(s): N30.01 - Acute cystitis with hematuria Condition: Good Instructions: Urinary Tract Infection in Women (ED) Additional Instructions: 1. Drink lots of fluids stay well-hydrated 2. Antibiotics as prescribed 3. Return to the emergency room if worsening symptoms includes worsening confusion, vomiting, fever, not doing well Referrals: VAZQUEZ BERG NP [Primary Care Provider] - As per Instructions Prescriptions: Cephalexin [Keflex] 500 mg PO Q6H #28 cap
[2018-11-10 17:05] LABS: PLATELET COUNT 273 10^3/uL (150-400)
[2018-11-10] MEDS ORDERED: NS 500 ML IV ONE ×2 (17:13→18:20)
[2018-11-10 17:29] LABS: INR 0.97 (0.83-1.16); PROTIME(PATIENT) 12.5 SEC (12.0-15.0)
[2018-11-10 19:40] VITALS: BP 168/94
--- NOTE | 2018-11-20 07:23 | CPEKG ---
Test Reason : OPEN Blood Pressure : / mmHG Vent. Rate : 065 BPM Atrial Rate : 065 BPM P-R Int : 190 ms QRS Dur : 091 ms QT Int : 406 ms P-R-T Axes : 013 022 033 degrees QTc Int : 423 ms Sinus rhythm Low voltage, precordial leads Confirmed by Cirilo Cespedes ([id number]) on 11/20/2018 7:22:43 AM Referred By: Cirilo Cespedes Confirmed By:Cirilo Cespedes
== END 2018-11-10 19:40 | disposition home or self-care (01) ==
DX: N30.01 Acute cystitis with hematuria (principal)
CPT/HCPCS: 84484-ER; 96365; J0696

== ENCOUNTER → 2019-01-01 | Outpatient (CLI) | payer OTHER | LOC: CIMAGING 11:05 ==